=== PATIENT | female | born 1975 | race Caucasian/White ===

== ENCOUNTER → 2017-05-04 | Outpatient (CLI) | payer OTHER, MEDICARE ==
[~2017-05-04] MED LIST: DUONEB 2.5-0.5 M3 ML INH; EFFEXOR XR75 MG PO; HYDROCODONE-ACE15 ML PO; LISINOPRIL10 MG PO; PREDNISONE 10 M10 MG PO; PROAIR HFA8.5 GM; TESSALON PERLE100 MG PO; XANAX 0.5 MG0.5 MG PO
== END ==
LOC: M.ULTRA 11:00
DX: R10.2 Pelvic and perineal pain (principal)

== ENCOUNTER 2017-05-30 14:50 | Emergency (ER) | payer OTHER, MEDICARE ==
[~2017-05-30] VITALS: Ht 167.6 cm; Wt 64.9 kg
[2017-05-30] MEDS ORDERED: HYDROCODONE-ACE15 ML PO (15:09)
[2017-05-30] MEDS ORDERED: XANAX 0.5 MG0.5 MG PO (15:09)
[2017-05-30] MEDS ORDERED: PROAIR HFA8.5 GM (15:10)
[2017-05-30] MEDS ORDERED: LISINOPRIL10 MG PO (15:10)
[2017-05-30] MEDS ORDERED: EFFEXOR XR75 MG PO (15:10)
[2017-05-30 15:45] LABS: ABSOLUTE EOSINOPHILS 0.1 thou/uL (0.0-0.7); ABSOLUTE LYMPHOCYTES 1.6 thou/uL (0.8-5.3); ABSOLUTE MONOCYTES 0.4 thou/uL (0.0-1.2); ABSOLUTE NEUTROPHILS 5.9 thou/uL (1.6-8.1); BASOPHILS 0.3 %; EOSINOPHILS 1.3 %; HEMATOCRIT 40.7 % (37.0-47.0); HEMOGLOBIN 13.2 gm/dL (12.0-15.0); LYMPHOCYTES 19.8 %; MCH 28.8 pg (26.0-34.0); MCHC 32.5 g/dL (28.0-37.0); MCV 88.7 fL (80.0-100.0); MONOCYTES 5.2 %; MPV 6.9 fl. (7.2-11.1); NUCLEATED RBCS 0 /100WBC; PLATELET COUNT* 245 thou/uL (150-400); POLYS 73.4 %; RBC 4.59 mil/uL (4.20-5.00); RDW-CV 13.6 % (10.5-14.5)
[2017-05-30 15:55] LABS: ANION GAP 6 mmol/L (7-16); BUN 17 mg/dL (7-18); CALCIUM 9.4 mg/dL (8.5-10.1); CHLORIDE 102 mmol/L (98-107); CO2 32 mmol/L (21-32); CREATININE 0.6 mg/dL (0.6-1.3); GLUCOSE 98 mg/dL (70-99); POTASSIUM 4.1 mmol/L (3.5-5.1); SODIUM 140 mmol/L (136-145)
[2017-05-30 15:56] LABS: PROTIME 10.1 Seconds (9.20-11.50)
[2017-05-30 16:03] LABS: ALBUMIN 3.9 g/dL (3.4-5.0); ALKALINE PHOSPHATASE 156 U/L (46-116); SGOT 19 U/L (15-37); SGPT 29 U/L (30-65); TOTAL BILIRUBIN 0.5 mg/dL (<0.1-1.0); TOTAL PROTEIN 7.6 g/dL (6.4-8.2); TROPONIN-I LEVEL <0.06 ng/mL (<0.06)
[2017-05-30] MEDS ORDERED: TESSALON PERLE100 MG PO (17:36)
[2017-05-30] MEDS ORDERED: PREDNISONE 10 M10 MG PO (17:36)
[2017-05-30] MEDS ORDERED: DUONEB 2.5-0.5 M3 ML INH (17:36)
[2017-05-30 17:51] VITALS: BP 131/81
== END 2017-05-30 17:54 | disposition home or self-care (01) ==
LOC: M.ERS 14:50
PROVIDERS: Physician Assistant
DX: J40 Bronchitis, not specified as acute or chronic (principal); J45.909 Unspecified asthma, uncomplicated; Z88.1 Allergy status to other antibiotic agents; Z88.7 Allergy status to serum and vaccine

== ENCOUNTER 2018-03-18 02:42 | Emergency (ER) | payer OTHER, MEDICARE ==
[~2018-03-18] VITALS: Ht 167.6 cm; Wt 69.4 kg
[2018-03-18] MEDS ORDERED: NORCO 7.5-3251 EACH PO (02:52)
[2018-03-18] MEDS ORDERED: VIIBRYD40 MG PO (02:53)
[2018-03-18 03:06] LABS: ABSOLUTE EOSINOPHILS 0.1 thou/uL (0.0-0.7); ABSOLUTE MONOCYTES 0.3 thou/uL (0.0-1.2); ABSOLUTE NEUTROPHILS 3.1 thou/uL (1.6-8.1); BASOPHILS 0.8 %; HEMATOCRIT 38.8 % (37.0-47.0); HEMOGLOBIN 12.8 gm/dL (12.0-15.0); LYMPHOCYTES 36.1 %; MCH 29.2 pg (26.0-34.0); MCV 88.7 fL (80.0-100.0); MONOCYTES 5.7 %; NUCLEATED RBCS 0 /100WBC; PLATELET COUNT* 242 thou/uL (150-400); POLYS 55.4 %; RBC 4.37 mil/uL (4.20-5.00); RDW-CV 13.3 % (10.5-14.5); WBC 5.6 thou/uL (4.0-11.0)
[2018-03-18 03:16] LABS: ANION GAP 5 mmol/L (7-16); BUN 19 mg/dL (7-18); CALCIUM 9.1 mg/dL (8.5-10.1); CHLORIDE 105 mmol/L (98-107); CO2 31 mmol/L (21-32); CREATININE 0.9 mg/dL (0.6-1.3); GLUCOSE 92 mg/dL (70-99); POTASSIUM 3.3 mmol/L (3.5-5.1); SODIUM 141 mmol/L (136-145)
[2018-03-18 03:21] LABS: APTT 27.6 Seconds (25.0-31.3)
[2018-03-18 03:35] LABS: ALBUMIN 3.8 g/dL (3.4-5.0); ALKALINE PHOSPHATASE 123 U/L (46-116); CK-MB MASS 1.8 ng/mL (<0.5-3.6); LIPASE 282 U/L (73-393); MAGNESIUM 1.9 mg/dL (1.8-2.4); NT-PRO BRAIN NAT PEPTIDE 100 pg/mL (<300); SGOT 19 U/L (15-37); SGPT 25 U/L (30-65); TOTAL BILIRUBIN 0.4 mg/dL (<0.1-1.0); TOTAL PROTEIN 7.5 g/dL (6.4-8.2); TROPONIN-I LEVEL <0.06 ng/mL (<0.06)
[2018-03-18 04:52] LABS: URINE BILIRUBIN NEGATIVE (Negative); URINE BLOOD NEGATIVE (Negative); URINE CLARITY CLEAR; URINE COLOR YELLOW; URINE GLUCOSE-RANDOM NEGATIVE (Negative); URINE KETONES NEGATIVE (Negative); URINE LEUKOCYTES-REFLEX NEGATIVE (Negative); URINE NITRITE-REFLEX NEGATIVE (Negative); URINE PROTEIN NEGATIVE (Negative); URINE SPECIFIC GRAVITY 1.015 (1.005-1.030); URINE UROBILINOGEN 0.2 E.U./dl (0.2-1.0)
[2018-03-18 05:33] VITALS: BP 142/86
--- NOTE | 2018-03-18 09:39 | EKG ---
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
--- NOTE | 2018-03-18 09:39 | EKG ---
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
== END 2018-03-18 05:36 | disposition home or self-care (01) ==
LOC: M.ERS 02:42
PROVIDERS: Family Medicine
DX: R07.89 Other chest pain (principal); J45.909 Unspecified asthma, uncomplicated; Z88.1 Allergy status to other antibiotic agents; Z88.0 Allergy status to penicillin; Z88.7 Allergy status to serum and vaccine; Z85.3 Personal history of malignant neoplasm of breast; Z85.830 Personal history of malignant neoplasm of bone